=== PATIENT | male | born 1945 | race Native Hawaiian/Other Pacific Islander ===

== ENCOUNTER 2021-04-30 18:01 | Emergency (ER) | payer OTHER, BC ==
[~2021-04-30] VITALS: Ht 180.3 cm; Wt 77.1 kg
[2021-04-30] MEDS ORDERED: SIMV10TA PO (18:17)
[2021-04-30] MEDS ORDERED: LOSA50TA PO (18:17)
[2021-04-30 20:50] VITALS: BP 136/68; TEMP 98.4
== END 2021-04-30 20:50 | disposition home or self-care (01) ==
LOC: ED 18:01
DX: T63.441A Toxic effect of venom of bees, accidental (unintentional), initial encounter (principal); R60.0 Localized edema; X58.XXXA Exposure to other specified factors, initial encounter; Y93.89 Activity, other specified; Y92.89 Other specified places as the place of occurrence of the external cause
CPT/HCPCS: 96372; 99283; J0171; J2930